=== PATIENT | female | born 1995 | race African-American/Black ===

== ENCOUNTER 2016-08-29 17:28 | Emergency (ER) | payer MEDICAID ==
[2016-08-29 19:36] VITALS: BP 117/76
--- NOTE | 2016-08-29 19:46 | UC ---
Complaint Female HPI - HPI Summary HPI Summary: Pain and burning with urination, also gets a sharp pain in her vagina while urinating. Has seen multiple HCPs (airline ticket agent, urgent care, ED, urologist) for this problem and it hasn't gone away. Is taking doxycycline rx by airline ticket agent last week, has diflucan in case of yeast. Pt does not want more testing for gc/chlamydia, yeast, or BV tonight as she just had that done with her airline ticket agent and has not been sexually active in months. Pt has used pyridium and topical lidocaine in the past without relief. - History Of Current Complaint Stated Complaint: URINARY Hx Obtained From: Patient Hx Last Menstrual Period: 08/13/16 ?: No Onset/Duration: Gradual Onset Timing: Constant Severity Initially: Mild Severity Currently: Moderate Character: Burning Aggravating Factor(s): Movement, Urination Associated Signs And Symptoms: Negative: Fever, Back Pain, Vaginal Discharge, Vomiting(# Of Episodes =) - Allergies/Home Medications Allergies/Adverse Reactions: Allergies Allergy/AdvReac Type Severity Reaction Status Date / Time No Known Allergies Allergy Verified 08/29/16 19:30 Home Medications: Home Medications NK [No Home Medications Reported] 08/29/16 [History Confirmed 08/29/16] PMH/Surg Hx/FS Hx/Imm Hx Endocrine History Of: Denies: Diabetes, Thyroid Disease, Hyperthyroidism, Hypothyroidism, Dyslipidemia Cardiovascular History Of: Denies: Cardiac Disorders, Hypertension, Pacemaker/ICD, Myocardial Infarction , Congestive Heart Failure, Atrial Fibrillation, Deep Vein Thrombosis, Bleeding Disorders Respiratory History Of: Denies: COPD, Asthma, Bronchitis, Pneumonia, Pulmonary Embolism GI/ History Of: Denies: Gastroesophageal Reflux, Ulcer, Gastrointestinal Bleed, Gall Bladder Disease, Kidney Stones, Diverticulitis, Renal Disease, Urosepsis Neurological History Of: Denies: TIA, CVA, Dementia, Seizures, Migraine Psychological History Of: Denies: Anxiety, Depression, Bipolar Disorder, Schizophrenia, Post Traumatic Stress Disorder Cancer History Of: Denies: Lung Cancer, Colorectal Cancer, Breast Cancer, Prostate Cancer, Cervical Cancer Other History Of: Negative For: HIV, Hepatitis B, Hepatitis C, Anticoagulant Therapy - Surgical History Surgical History: Yes Surgery Procedure, Year, and Place: TONSILLECTOMY - Family History Known Family History: Positive: None - Social History Occupation: Student Alcohol Use: Rare Substance Use Type: None Smoking Status (MU): Never Smoked Tobacco Review of Systems Constitutional: Negative Skin: Negative Eyes: Negative ENT: Negative Respiratory: Negative Cardiovascular: Negative Gastrointestinal: Negative Genitourinary: Dysuria Motor: Negative Neurovascular: Negative Musculoskeletal: Negative Neurological: Negative Psychological: Negative All Other Systems Reviewed And Are Negative: Yes Physical Exam Triage Information Reviewed: Yes Appearance: Well-Appearing, No Pain Distress, Well-Nourished Vital Signs: Initial Vital Signs Temp 98.2 F 08/29/16 19:26 Pulse 61 08/29/16 19:26 Resp 14 08/29/16 19:26 BP 117/76 08/29/16 19:26 Pulse Ox 100 08/29/16 19:26 Vital Signs Reviewed: Yes Eye Exam: Normal Eyes: Positive: Conjunctiva Clear ENT Exam: Normal ENT: Positive: Normal ENT inspection, Hearing grossly normal, Pharynx normal, TMs normal Dental Exam: Normal Neck exam: Normal Neck: Positive: Supple, Nontender, No Lymphadenopathy Respiratory Exam: Normal Respiratory: Positive: Chest non-tender, Lungs clear, Normal breath sounds, No respiratory distress, No accessory muscle use Cardiovascular Exam: Normal Cardiovascular: Positive: RRR, No Murmur Abdomen Description: Positive: Soft, Other: - suprapubic tenderness. Negative: CVA Tenderness (R), CVA Tenderness (L) Musculoskeletal Exam: Normal Neurological Exam: Normal Psychological Exam: Normal Skin Exam: Normal Complaint Female Dx - Differential Dx/Diagnosis Provider Diagnoses: dysuria Discharge - Discharge Plan Condition: Stable Disposition: HOME Patient Education Materials: Dysuria (ED) Additional Instructions: You have no signs of new infection today. As we discussed, your symptoms have some similarities with chronic pain conditions such as endometriosis and interstitial cystitis. Neither of these conditions, or other pelvic pain, have any particular treatment, and sometimes they require significant lifestyle and dietary changes. Please follow up with your cork sorter.
== END 2016-08-29 20:00 | disposition home or self-care (01) ==
LOC: UCCORT 17:28
DX: R30.0 Dysuria (principal)
CPT/HCPCS: 99211; G0463